=== PATIENT | female | born 1960 ===

== ENCOUNTER 2020-11-25 19:00 | Outpatient (REF) | payer MEDICARE, SELFPAY ==
[2020-11-27 16:11] LABS: COVID-19 RT-PCR UVMMC Result Negative (Negative)
== END 2020-11-25 19:20 ==
LOC: LBN 19:00
PROVIDERS: Visit Provider Nurse Practitioner Adult Health
DX: Z11.52 Encounter for screening for COVID-19 (principal)
CPT/HCPCS: U0003

== ENCOUNTER 2020-12-09 17:09 | Outpatient (REF) | payer MEDICARE, SELFPAY ==
[2020-12-12 07:57] LABS: COVID-19 RT-PCR Result Not detected ((See Note))
== END 2020-12-09 17:29 ==
LOC: LBN 17:09
PROVIDERS: Visit Provider Nurse Practitioner Adult Health
DX: Z11.52 Encounter for screening for COVID-19 (principal)
CPT/HCPCS: U0003